=== PATIENT | female | born 1975 | race Asian ===

== ENCOUNTER 2018-09-07 06:05 | Day surgery (SDC) | payer OTHER ==
[~2018-09-07] VITALS: Ht 154.9 cm; Wt 71.7 kg
[2018-09-07 06:23] VITALS: BP 144/93
[2018-09-07 12:08] VITALS: BP 142/66
== END 2018-09-07 10:50 | disposition home or self-care (01) ==
LOC: DS 06:05 → OR 07:30 → DS 10:50
PROVIDERS: Obstetrics & Gynecology
PROC: 0UT70ZZ Resection of Bilateral Fallopian Tubes, Open Approach (ICD-10-PCS; principal; 2018-09-07 07:30)
DX: Z30.2 Encounter for sterilization (principal); I10 Essential (primary) hypertension; E11.9 Type 2 diabetes mellitus without complications; Z86.32 Personal history of gestational diabetes
CPT/HCPCS: J0690; J1170; J2405; J2704; J3010; J3490; J7120